=== PATIENT | female | born 1960 | race Caucasian/White ===

== ENCOUNTER → 2017-05-16 16:27 | Outpatient (CLI) | payer OTHER ==
[2014-07-06 06:12] VITALS: BMI 21.9
[~2017-05-16 16:27] MED LIST: ASCORBIC ACID500 MG PO; ESTROVEN; FLAXSEED OIL1000 MG PO; GLUCOSAMINE & C1 CAP PO; HYDROCODONE-APA1 TAB PO; ST. JOHN'S WOR150 MG; [UNRECOGNIZED DRUG - OTHER]
== END | disposition home or self-care (01) ==
LOC: D.MAMMO 13:00
DX: Z12.31 Encounter for screening mammogram for malignant neoplasm of breast (principal)

== ENCOUNTER 2018-10-07 08:00 | Outpatient (CLI) | payer OTHER ==
[2014-07-06 06:12] VITALS: BMI 21.9
== END 2018-10-07 08:30 | disposition home or self-care (01) ==
LOC: D.MAMMO 08:00
PROVIDERS: ATTEND Family Medicine
DX: Z12.31 Encounter for screening mammogram for malignant neoplasm of breast (principal)